=== PATIENT | male | born 2000 | race Caucasian/White ===

== ENCOUNTER 2019-09-21 17:47 | Emergency (ER) | payer BC ==
[~2019-09-21] VITALS: Ht 180.3 cm; Wt 63.5 kg
[~2019-09-21 17:47] MED LIST: KEFLEX500 MG PO; Motrin,Rufen800 MG PO; NKHM
[2019-09-21] MEDS ORDERED: TYLENOL325 M1 PO (19:41)
[2019-09-21] MEDS ORDERED: POLYSPORIN OINT15 GM T (19:41)
[2019-09-21] MEDS ORDERED: NAPROSYN500 MG PO (19:41)
== END 2019-09-21 20:04 | disposition home or self-care (01) ==
LOC: ED 17:47
DX: S80.211A Abrasion, right knee, initial encounter (principal); S70.311A Abrasion, right thigh, initial encounter; W20.8XXA Other cause of strike by thrown, projected or falling object, initial encounter; Y93.89 Activity, other specified; Y92.098 Other place in other non-institutional residence as the place of occurrence of the external cause; Y99.8 Other external cause status

== ENCOUNTER 2020-12-09 22:35 | Emergency (ER) | payer BC ==
[~2020-12-09 22:35] MED LIST changes: +NAPROSYN500 MG PO; +POLYSPORIN OINT15 GM T; +TYLENOL325 M1 PO
[2020-12-09 23:17] LABS: BASO % 0.2 % (0.0-1.0); EOS # 0.1 10*3/uL (0.0-0.4); EOS % 0.5 % (1.0-4.0); HEMATOCRIT 47.3 % (42.0-52.0); LYMPH # 3.2 10*3/uL (1.3-4.4); LYMPH % 32.9 % (27.0-41.0); MEAN CELL VOLUME 87.8 fl (80.0-94.0); MEAN CORPUSCULAR HGB 29.3 pg (27.0-31.0); MEAN CORPUSCULAR HGB CONC 33.4 g/dl (33.0-37.0); MEAN PLATELET VOLUME 9.7 fl (9.6-12.3); MONO # 0.6 10*3/uL (0.1-1.0); MONO % 5.7 % (3.0-9.0); NEUT # 5.9 10*3/uL (2.3-7.9); NEUT % 60.5 % (47.0-73.0); PLATELET COUNT AUTOMATED 287 10*3/uL (130-400); RED BLOOD COUNT 5.39 10*6/uL (4.50-5.90); RED CELL DISTRI WIDTH 12.7 % (0-14.5); WHITE BLOOD COUNT 9.7 10*3/uL (4.8-10.8)
[2020-12-09 23:33] LABS: ALBUMIN 4.6 gm/dl (3.1-4.5); ALKALINE PHOSPHATASE 57 U/L (45-117); BUN 10 mg/dl (7-24); CHLORIDE 107 mmol/L (98-107); CREATININE 1.29 mg/dL (0.70-1.30); LIPASE 169 U/L (73-393); SGOT/AST 10 IU/L (3-35); SGPT/ALT 20 U/L (12-78); SODIUM 139 mmol/L (136-145); TOTAL PROTEIN 7.5 gm/dL (6.4-8.2)
== END 2020-12-10 00:20 | disposition home or self-care (01) ==
LOC: ED 22:35
PROVIDERS: Internal Medicine
DX: K59.00 Constipation, unspecified (principal); R10.9 Unspecified abdominal pain; Z79.899 Other long term (current) drug therapy